=== PATIENT | male | born 1955 | race Caucasian/White ===

== ENCOUNTER 2017-08-28 17:46 | Emergency (ER) | payer MEDICAID ==
[2017-08-28 17:54] VITALS: BP 118/79
--- NOTE | 2017-08-28 17:57 | EDPHY ---
H & P Stated Complaint: abd pain Time Seen by Provider: 08/28/17 17:55 - Personal History Current Tetanus/Diphtheria Vaccine: Unsure Current Tetanus Diphtheria and Acellular Pertussis (TDAP): Unsure - Medical/Surgical History Hx Asthma: Yes Hx Chronic Respiratory Disease: No Hx Diabetes: No Hx Cardiac Disease: No Hx Renal Disease: No Hx Cirrhosis: No Hx Alcoholism: No Hx HIV/AIDS: No Hx Splenectomy or Spleen Trauma: No Other PMH: asthma, eczema, - Social History Smoking Status: Never smoked Constitutional: Initial Vital Signs Temperature (C) 37.1 C 08/28/17 17:51 Heart Rate 104 H 08/28/17 17:51 Respiratory Rate 16 08/28/17 17:51 Blood Pressure 118/79 08/28/17 17:51 O2 Sat (%) 93 08/28/17 17:51 O2 Delivery Mode Room Air Allergies/Adverse Reactions: Penicillins Allergy (Verified 08/28/17 17:51) Home Medications: Medication Instructions Recorded NK [No Known Home Meds] 08/28/17 Medical Decision Making ED Course/Re-evaluation: CHIEF COMPLAINT: Abdominal pain HISTORY OF PRESENT ILLNESS: The patient is a 62 y/o male complaining of abdominal pain radiating to his back onset this morning. Last Thursday, one week ago, he had similar symptoms that alleviated after drinking more water. Today the pain occurred again but he was able to vomit once, then drink water after vomiting, which alleviated the pain. He is unsure if this pain was due to eating abnormal or contaminated food. He is currently not having any pain but is more tired than normal. Denies headache, chest pain, shortness of breath, urinary or bowel complaints, fever. REVIEW OF SYSTEMS: A 10 point review of systems was performed and is negative with the exception of the elements mentioned in the history of present illness. PHYSICAL EXAM: HR, BP, O2 Sat, RR. Temp noted General Appearance: Alert, well hydrated, appropriate, and non-toxic appearing. Head: Atraumatic without scalp tenderness or obvious injury Eyes: Pupils equal, round, reactive to light and accommodation, EOMI, no trauma , no injection. Ears: Clear bilaterally, no perforation, normal landmarks Nose: Atraumatic, no rhinorrhea, clear. Throat: Mucus membranes moist. Neck: Supple, nontender, no lymphadenopathy. Respiratory: No retractions, no distress, no wheezes, and no accessory muscle use. Lungs are clear to auscultation bilaterally. Cardiovascular: Regular rate and rhythm, no murmurs, rubs, or gallops. Good capillary refill all extremities. Gastrointestinal: Abdomen is soft, nontender, non-distended, no masses, no rebound, no guarding, no peritoneal signs. Musculoskeletal: Normal active ROM of all extremities, atraumatic. Neurological: Alert, appropriate, and interactive. Non-focal neuro. Skin: No rashes, good turgor, no nodules on palpation. Past medical history: Asthma, eczema Past surgical history: Denies Family history: Denies Social history: Lives in [place], single, self-employed DIFFERENTIAL DIAGNOSIS: The differential diagnosis for the patient's abdominal pain included but was not limited to appendicitis, cholecystitis, hernias, testicular torsion, gastritis, and urinary tract infection. MEDICAL DECISION MAKING: The patient is a 62 y/o male complaining of abdominal pain radiating to his back onset this morning. This is the second episode of symptoms in the past week. His abdomen is benign on exam. I have discussed risks and benefits of having an abdominopelvic CT; he is refusing to have CT or lab work preformed at this time. Reassessed patient, I have discussed returning if his symptoms return to have further imaging preformed. I have also advised him to follow up with a auto haulaway driver in the next week for unimproved symptoms. Return precautions provided; patient is comfortable with this plan. Departure - Departure Disposition: Home, Routine, Self-Care Clinical Impression: Abdominal pain Qualifiers: Abdominal location: generalized Qualified Code(s): R10.84 - Generalized abdominal pain Condition: Good Instructions: Acute Abdominal Pain (ED) Additional Instructions: 1. Increase fluid intake. 2. Follow-up with your primary doctor within 72 hours. 3. Follow-up with a auto haulaway driver in the next week. 4. Return to the Emergency Department for fever, chest pain, shortness of breath , increasing pain, return of symptoms, or other worsening of condition. Referrals: DOUG CASILLAS [Primary Care Provider] - As per Instructions Thomas Fong MD [Medical Doctor] - As per Instructions Report Scribed for: Ezra Arguelles Report Scribed by: Rivka Lee Date of Report: 08/28/17 Time of Report: 17:57
== END 2017-08-28 18:42 | disposition home or self-care (01) ==
DX: R10.84 Generalized abdominal pain (principal); J45.909 Unspecified asthma, uncomplicated